=== PATIENT | male | born 1985 | race Caucasian/White ===

== ENCOUNTER → 2018-11-03 08:34 | Outpatient (CLI) | payer BC, SELFPAY ==
[2018-11-03 10:37] LABS: Absolute Lymphocyte Count 1.41 X10^3/uL (0.83-4.51); Absolute Neutrophil Count 2.8 X10^3/uL (2.0-7.7); Basophil# 0.03 X10^3/uL; Basophil% 0.6 % (0-1); Eosinophil# 0.04 X10^3/uL; Eosinophils% 0.9 % (0-5); Hematocrit 46.4 % (40-54); Lymphocyte # 1.41 X10^3/ul (4.0); Lymphocyte % 30.3 % (19-41); Mean Corp Hgb Conc 34.5 g/dL (32-36); Mean Corpuscular Hgb 30.7 pg (27.0-32.0); Mean Corpuscular Volume 88.9 fL (80-94); Mean Platelet Vol. 11.1 fl (6.2-12.0); Monocyte# 0.35 X10^3/uL; Monocyte% 7.5 % (0-10); NRBC Flagged by Analyzer 0 % (0-5); Neutrophil % 60.3 % (47-70); Platelet Count 168 K/mm3 (150-450); RBC Distribution Width CV 12.4 % (11.6-14.6); RBC Distribution Width SD 40.6 fl (35.1-43.9); Red Blood Count 5.22 M/mm3 (4.6-6.2); White Blood Count 4.7 K/mm3 (4.4-11.0)
[2018-11-03 10:53] LABS: Anion Gap 5 (5-15); BUN 13 mg/dL (7-18); BUN/Creat Ratio 10.9 RATIO (10-20); Calcium,Total 9.1 mg/dL (8.5-10.1); Chloride 105 mmol/L (98-107); Cholesterol 116 mg/dL (200); Creatinine, Serum 1.19 mg/dL (0.70-1.30); EST Glomerular Filtration Rate 75 mL/min (>60); Est Glom Filt Rate - Afr Amer 91 mL/min (>60); Glucose 83 mg/dL (74-106); High Density Lipoprotein 60 mg/dL; Potassium 4.5 mmol/L (3.5-5.1); Sodium Level 139 mmol/L (136-145); Triglycerides 28 mg/dL; Very Low Density Lipoprotein 6 mg/dL (5-40)
== END ==
PROVIDERS: Family Provider Family Medicine; PCP Family Medicine; Referring Provider Family Medicine; Visit Provider Family Medicine
DX: R42 Dizziness and giddiness (principal); I49.8 Other specified cardiac arrhythmias
CPT/HCPCS: 36415; 80048; 80061; 85025

== ENCOUNTER → 2018-11-15 06:14 | Outpatient (CLI) | payer BC, SELFPAY ==
--- NOTE | 2018-11-15 06:15 | RAD_ITS ---
HISTORY: PRE MRI ORBITS EXAMINATION/TECHNIQUE: XR Orbits MRI Gerry 2 views COMPARISON: None FINDINGS: 2 views obtained. No radiopaque foreign body is seen. The orbits are symmetrical. The paranasal sinuses are well developed and appear clear. RAD/Orbits for Foreign Body IMPRESSION: 1. Negative exam. No radiopaque foreign body identified. 2. Please proceed with MRI. at 0641 Reported and signed by: Marino Chong MD Electronically Signed: Marino Chong, at 6:40 EDT Tel , Service support ,
--- NOTE | 2018-11-15 06:31 | MRI_ITS ---
STUDY: MRI BRAIN WITH AND WITHOUT CONTRAST (ATTENTION INTERNAL AUDITORY CANALS - I.A. C.'s) REASON FOR EXAM: Male, 33 years old. Bilateral tinnitus and dizziness. Lightheadedness. TECHNIQUE: Standardized multiplanar fat and water weighted pulse sequences were obtained. 19 IV Dotarem was administered for the contrast portion of the examination. COMPARISON: None. FINDINGS: Asymmetric signal noted within the jugular vein on the right consistent with flow phenomenon. Normal bilateral temporal bones. Normal bilateral internal auditory canals. There is no demonstrated intracanalicular or cisternal vestibular schwannoma (acoustic neuroma). There is no enhancement of the bilateral VIIth or VIIIth cranial nerves. Normal bilateral cochlea, vestibules and semicircular canals. Normal size of the ventricles and extra-axial spaces for the patient's age. Normal white matter tracts of the supratentorial brain. Normal bilateral basal ganglia. Normal thalami. Normal flow voids within the major intracranial circulation suggesting patency by spin echo criteria. Normal venous enhancement. There is no enhancing intra-axial or extra-axial abnormality. There is no extra-axial fluid accumulation. Normal sella turcica, pituitary gland, infundibular stalk, optic chiasm and hypothalamus. Normal tectal plate and pineal gland. Normal midbrain, russ and medulla. Normal cerebellum. Normal basal cisterns. No demonstrated orbital abnormality, within the constraints of a routine brain study. Normal visualized paranasal sinuses. Normal calvarium and skull base. Normal visualized soft tissue structures. Normal visualized upper cervical spine. MRI/Brain W/WO Contrast IMPRESSION: Normal unenhanced and enhanced MRI of the bilateral internal auditory canals (I.A.C's). Electronically Signed: Olegario Laguerre MD at 20:17 EDT , Service support ,
== END ==
PROVIDERS: Family Provider Family Medicine; PCP Family Medicine; Referring Provider Otolaryngology; Visit Provider Otolaryngology
DX: H93.13 Tinnitus, bilateral (principal)
CPT/HCPCS: 70030; 70553; A9575

== ENCOUNTER → 2019-05-25 09:44 | Outpatient (CLI) | payer BC, SELFPAY ==
[2019-05-25 08:44] VITALS: BMI 29.5
[2019-05-25 10:35] LABS: Hematocrit 49.2 % (40-54); Hemoglobin 16.5 g/dL (13.0-16.5); Mean Corp Hgb Conc 33.5 g/dL (32-36); Mean Corpuscular Hgb 29.4 pg (27.0-32.0); Mean Corpuscular Volume 87.7 fL (80-94); Platelet Count 204 K/mm3 (150-450); RBC Distribution Width CV 13.1 % (11.6-14.6); RBC Distribution Width SD 41.2 fl (35.1-43.9); Red Blood Count 5.61 M/mm3 (4.6-6.2); White Blood Count 6.5 K/mm3 (4.4-11.0)
[2019-05-25 11:02] LABS: Anion Gap 4 (5-15); BUN 15 mg/dL (7-18); BUN/Creat Ratio 12.5 RATIO (10-20); Calcium,Total 9.3 mg/dL (8.5-10.1); Chloride 110 mmol/L (98-107); EST Glomerular Filtration Rate 74 mL/min (>60); Est Glom Filt Rate - Afr Amer 90 mL/min (>60); Glucose 86 mg/dL (74-106); Potassium 4.6 mmol/L (3.5-5.1); Sodium Level 141 mmol/L (136-145)
== END ==
PROVIDERS: PCP Family Medicine; Referring Provider Internal Medicine Cardiovascular Disease; Visit Provider Internal Medicine Cardiovascular Disease
DX: R55 Syncope and collapse (principal); R00.1 Bradycardia, unspecified; R42 Dizziness and giddiness
CPT/HCPCS: 36415; 80048; 85027

== ENCOUNTER → 2019-05-29 10:46 | Outpatient (CLI) | payer BC, SELFPAY ==
[2019-05-25 08:44] VITALS: BMI 29.5
--- NOTE | 2019-05-29 10:47 | ECHOD_ITS ---
Reason For Study: SYNCOPE/ NEAR SYNCOPE Procedure This was a 2D Doppler, Color Flow transthoracic echocardiogram. Exam performed in department. Left Ventricle Normal LV size. Left ventricular systolic function is normal. The estimated ejection fraction is 60 %. No regional wall motion abnormalities noted. Right Ventricle Normal RV size. Normal systolic function. Atria Normal left atrium. Normal right atrium. Bubble contrast study negative for right to left interatrial shunt. Mitral Valve Normal mitral valve. Tricuspid Valve Normal tricuspid valve. Aortic Valve Normal aortic valve. Trisinus/trileaflet aortic valve. Pulmonic Valve Normal pulmonic valve. Great Vessels Normal aortic root. The pulmonary artery is normal size. Normal inferior vena cava. Pericardium/Pleural No pericardial effusion. Medication 22 gauge I.V. with prn adaptor inserted into right arm. Performed a rapid injection of agitated mix of 9 cc saline and 1cc air to assess for atrial septal defect. MMode/2D Measurements & Calculations LVIDd: 5.3 cm IVSd: 0.89 cm Ao root diam: 3.4 cm LVIDs: 3.6 cm LVPWd: 0.88 cm RVDd: 3.6 cm FS: 32.2 % LAV(MOD-bp): 53.6 ml LA A4 area: 18.4 cm2 LA dimension(2D): 3.8 cm LAV(MOD-bp) Indexed: 25.1 ml/m2 LAV(MOD-sp2): 52.8 ml LAV(MOD-sp4): 45.7 ml RA A4 area: 15.0 cm2 Time Measurements MV dec time: 0.36 sec Doppler Measurements & Calculations MV E max wally: 63.4 cm/sec Lat Peak E' Wally: 17.6 cm/sec Med Peak E' Wally: 8.3 cm/sec MV A max wally: 40.1 cm/sec E/E' lat: 3.6 E/E' med: 7.6 MV E/A: 1.6 Ao V2 max: 112.0 cm/sec LV V1 max: 97.3 cm/sec PA V2 max: 98.0 cm/sec Ao max P.0 mmHg LV V1 max P.8 mmHg TR max wally: 205.2 cm/sec TR max P.9 mmHg Interpretation Summary Normal LV size. Left ventricular systolic function is normal. The estimated ejection fraction is 60 %. Bubble contrast study negative for right to left interatrial shunt. Structurally normal valves. The global longitudinal strain is normal. The global longitudinal strain = -17.7 % (normal). Ordering Physician: Wilbur Cedillo Referring Physician: BRETT KHAN Performed By: Judith Rey, EMORY, RVT
== END ==
PROVIDERS: PCP Family Medicine; Referring Provider Internal Medicine Cardiovascular Disease; Visit Provider Internal Medicine Cardiovascular Disease
DX: R55 Syncope and collapse (principal)
CPT/HCPCS: 93306

== ENCOUNTER → 2019-05-31 08:29 | Outpatient (CLI) | payer BC, SELFPAY ==
[2019-05-25 08:44] VITALS: BMI 29.5
--- NOTE | 2019-05-31 15:23 | TILTTABLE_ITS ---
- Summary Pre Test Resting HR: 76 Pre Test Resting BP: 117/69 Minimum Test HR: 60 Maximum Test HR: 120 Minimum Test BP: 113/61 Maximum Test BP: 133/89 Physician Tilt Table Report - Patient's Physicians Primary Care Physician: Varun White Indications/Diagnosis: Recurrent presyncope Procedure Comments: The patient was brought to the noninvasive lab in the postabsorptive nonsedated state. The initial blood pressure was 117/69 mmHg with a heart rate of 76 bpm and sinus rhythm. The patient was then placed in th e 70 degree head upright tilt position. Continuous EKG monitoring was performed as well as blood pressures and heart rates every 2 minutes. The maximum heart rate was noted to be 89 bpm with a maximum blood pressure 130/89 mmHg. Patient exhibited no symptoms. The patient was then placed back supine and administered 6.4 mg of sublingual nitroglycerin. Patient was then placed in the 70 degrees upright tilt table position with blood pressures and heart rate checked every 2 minutes. Patient complained of some lightheadedness and clamminess but no syncope. Patient did not exhibit any significant bradycardia dysrhythmias or hypotension. Summary: Negative tilt table test for symptoms or hypotension.
[2019-05-31 15:37] VITALS: BP 113/61; BP 117/69; BP 133/89
== END ==
PROVIDERS: PCP Family Medicine; Referring Provider Internal Medicine Cardiovascular Disease; Visit Provider Internal Medicine Cardiovascular Disease
DX: R55 Syncope and collapse (principal)
CPT/HCPCS: 93660; J7040; A4216

== ENCOUNTER → 2020-02-19 16:08 | Outpatient (CLI) | payer BC, SELFPAY ==
[2019-06-27 09:10] VITALS: BMI 29.4
[2020-02-19 18:17] LABS: Absolute Lymphocyte Count 1.85 X10^3/uL (0.83-4.51); Absolute Neutrophil Count 5.7 X10^3/uL (2.0-7.7); Basophil# 0.04 X10^3/uL; Basophil% 0.5 % (0-1); Eosinophil# 0.06 X10^3/uL; Eosinophils% 0.7 % (0-5); Hematocrit 46.4 % (40-54); Hemoglobin 15.8 g/dL (13.0-16.5); Lymphocyte # 1.85 X10^3/ul (4.0); Lymphocyte % 22.8 % (19-41); Mean Corp Hgb Conc 34.1 g/dL (32-36); Mean Corpuscular Hgb 29.9 pg (27.0-32.0); Mean Corpuscular Volume 87.7 fL (80-94); Mean Platelet Vol. 11.6 fl (6.2-12.0); Monocyte# 0.41 X10^3/uL; NRBC Flagged by Analyzer 0 % (0-5); Neutrophil # 5.73 X10^3/uL (2.7-7.7); Neutrophil % 70.6 % (47-70); Platelet Count 203 K/mm3 (150-450); RBC Distribution Width CV 12.4 % (11.6-14.6); RBC Distribution Width SD 39.8 fl (35.1-43.9); Red Blood Count 5.29 M/mm3 (4.6-6.2); White Blood Count 8.1 K/mm3 (4.4-11.0)
[2020-02-19 18:53] LABS: Thyroid Stim Hormone (TSH) 0.87 uIU/mL (0.358-3.74)
[2020-02-20 11:14] LABS: ALB/GLOB Ratio 1.7 RATIO (0.9-2.4); AST(SGOT) 29 U/L (15-37); Alanine Aminotransfer ALT/SGPT 65 U/L (16-61); Albumin, Serum 4.7 g/dL (3.2-5.0); Alkaline Phosphatase 64 U/L (45-117); Anion Gap 5 (5-15); BUN 15 mg/dL (7-18); Calcium,Total 9.6 mg/dL (8.5-10.1); Chloride 106 mmol/L (98-107); Creatinine, Serum 1.25 mg/dL (0.70-1.30); EST Glomerular Filtration Rate 71 mL/min (>60); Est Glom Filt Rate - Afr Amer 86 mL/min (>60); Globulin 2.8 g/dL (2.2-4.2); Glucose 106 mg/dL (74-106); Protein, Total 7.5 g/dL (6.4-8.2); Sodium Level 141 mmol/L (136-145)
== END ==
PROVIDERS: PCP Family Medicine; Visit Provider Family Medicine
DX: R42 Dizziness and giddiness (principal)
CPT/HCPCS: 36415; 80053; 84443; 85025

== ENCOUNTER 2020-03-27 17:28 | Outpatient (RCR) | payer BC, SELFPAY ==
[2019-06-27 09:10] VITALS: BMI 29.4
--- NOTE | 2020-03-27 18:24 | HP.PTEVAL_ITS ---
Patient's Visit Information BENEDICTO NGUYỄN is a 35 year old M referred to Physical Therapy by Dr. Varun White MD with a diagnosis of dizzyness. Date of Evaluation: 03/27/20 Physical Therapist: Hal Montes, LEONORT, OCS, CSCS - Visit Plan Frequency: 1x/Week Duration: 4-6 Weeks Plan: weekly as helpful x 4 weeks for. progression of adaptation exercises(VOR horizontal 60 sec 8x/day given today.(gave 4/10 dizzy for 5-10 seconds.) - Subjective Dizzyness for 2.5 yrs. Seen emergency planner adn had MRI and can't find anything wrong. ENT Omer who did a couple test and nothing he can do for him. 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 Days later started feeling unsteady rocking, never had any spinning. It is daily fairly constant but some times worse than others. Walking through supermarkets and large groups of people make it worse. Feels better upon leaving supermarket. Does not describe ENG. Had a week last Fer[place] where it was terrible nauseous and rocking. That got better. Not as bad or debilitating btu still present. Now activities are pretty normal but less inclined to go out , Does a lot of acoustic ceilings and stilt walking. Feels less stable on stilts. Worse when on stilts but functional. Sleep is OK. 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 Often worse after work. Feels good down on floor, worse when does ceiling. Hobbies include working out but doesn't do that as he doesn't feel like it . Hard to focus at times with reading. - Objective Walks normal and trasnfers normal and I. Steps reciprocal without rail. VOR walking is slightly slower and less steady but safe. cervical aROM WFL adn without pain or hesitation. - B hallpike haydee test. Oculomotor is normal: no nystagmus with gaze or head shake. - ocular tilt. - skew eye deviation. normal pursuit. Normal Saccades. - head thrust. VOR horiz stand and sit is 4/10 dizzyness after 30 seconds for about 5-10 seconds. VOR vertical is not a problem. MSQ psoitions are no problem for patient. - Goals Goal 1:: Pt walk at [employer] and in large groups without symptoms Goal Time Frame: 2-4 Weeks Goal 2:: Wrok without increased symptoms. Goal Time Frame: 2-4 Weeks Goal 3:: Pt feel 90% back to normal Goal Time Frame: 4-6 Weeks Goal 4:: DHI<20 Goal Time Frame: 4-6 Weeks - Rehabilitation Potential Physical Therapy Diagnosis: dizzyness, presents like unilateral vestibular hypofunction but terminal carman nature is confounding. Rehabilitation Potential: Fair - Anticipated Interventions Patient/Client Instruction: Educate patient on: Condition, Plan of Care For the Purpose of:: To increase tolerance to activity/condition/position Comment: aaptation as helpful/vestibular For the Purpose of:: To increase tolerance to activity/condition/position Thank you for the opportunity to evaluate your patient. For Medicare and Medicare HMO plans, please review the plan of care and approve it. It will need to be FAXED BACK to us at [phone] for Medicare purposes. For Medicare only, by signing this I certify the plan of care. Please let me know if there are questions or concerns regarding this plan of care. Physician Signat ure: Date:
--- NOTE | 2020-07-02 10:13 | HP.PT.NRP ---
BENEDICTO NGUYỄN was seen in my office for initial evaluation on 03/27/20. The following Plan of Care was established for this patient: Initial Frequency: 1x/Week Initial Duration: 4-6 Weeks Patient/Client Instruction: Educate patient on: Condition, Plan of Care For the Purpose of:: To increase tolerance to activity/condition/position For the Purpose of:: To increase tolerance to activity/condition/position This patient was last seen in our office 03/27/20. Pertinent comments regarding their Physical therapy will appear below: Pt seen for evaluation and cancelled the next two visits. He was treated with adaptation exercises. At this point, it has been over two months and I will discontinue due to nonattendance. At this point I will be discontinuing this patient from physical therapy. I would be happy to see this patient again in the future if found appropriate by the physician. Thank you! Hal Montes, DPT, OCS, CSCS
== END 2020-03-27 19:00 | disposition home or self-care (01) ==
LOC: PT 17:28
PROVIDERS: PCP Family Medicine; Referring Provider Family Medicine; Visit Provider Family Medicine
DX: R42 Dizziness and giddiness (principal)
CPT/HCPCS: 97110; 97162

== ENCOUNTER 2023-03-14 11:31 | Emergency (ER) | payer BC, SELFPAY ==
[2023-03-14 11:32] VITALS: BP 126/86; PULSE 88; RESP 14; TEMP 36.1; O2SAT 100; BMI 29.4
--- NOTE | 2023-03-14 11:56 | EDS_ITS ---
HPI History of Present Illness Chief Complaint: General Illness [facility] Medical History Bradycardia Dizziness Headache Migraines Near syncope Home Medications midodrine 5 mg tablet 5 mg PO TID #90 tabs 05/25/19 [Rx Last Taken Unknown] ondansetron 4 mg disintegrating tablet 4 mg PO Q8H PRN PRN Nausea #10 tabs 03/14/23 [Rx Last Taken Unknown] Allergy/AdvReac Type Severity Reaction Status Date / Time No Known Allergies Allergy Verified 03/14/23 11:34 Family History Mother Mitral valve prolapse Social History (Updated 06/27/19 @ 10:[address] Wilbur Cedillo MD) Smoking Status: Never smoker alcohol intake: never substance use type: does not use EXAM Physical Exam Const Vital Signs: 03/14/23 11:32 03/14/23 15:11 Temperature 97.0 F L Temperature Source Temporal Pulse Rate 88 Respiratory Rate 14 Respiratory Effort Normal Non-Labored Respiratory Pattern Normal Blood Pressure 126/86 H Blood Pressure Mean 99 Pulse Ox 100 Oxygen Delivery Method Room Air MDM MDM MDM Narrative Medical decision making narrative: HISTORY OF PRESENT ILLNESS: 38-year-old male presents with fever, vomiting, congestion, diarrhea and headache for 3 days. Denies shortness of breath. M the patient denies recent surgery in the last 4 weeks or immobilization in the last 3 days, denies previous diagnosis of DVT or PE, hemoptysis, unilateral leg swelling or malignancy with treatment the last 6 months or palliative. No estrogen use noted. Patient denies sudden onset or thunderclap headache, denies maximal intensity within 1 minute, vomiting, neck pain, stiffness, changes in vision, fever, history malignancy, syncope, or seizures associated with headache. Patient denies sudden onset or thunderclap headache, denies maximal intensity within 1 minute, vomiting, neck pain, stiffness, changes in vision, fever, history malignancy, syncope, or seizures associated with headache. REVIEW OF SYSTEMS: Pertinent positives: Fever, headache, nausea, vomiting, diarrhea Pertinent negatives: Shortness of breath, chest pain PHYSICAL EXAM: Nursing triage notes reviewed, Vital signs reviewed Constitutional: please see mdm HENT: MMM Eyes: Pupils equal round and reactive to light, Extraocular muscles intact Neck: No stridor, no JVD, full neck ROM Lungs: Clear to auscultation, No wheezing or rales. No increased work of breathing, no conversational dyspnea, no accessory muscle use, no nasal flaring. No respiratory distress noted Heart: Regular rate and rhythm, No murmurs, No rubs and No gallops, 2+ distal pulses (radial, femoral, posterior tibial) in all extremities Abdomen: Soft, there is no tenderness, rigidity, rebound or guarding, no obvious peritoneal signs, no palpable pulsatile abdominal masses, no auscultated abdominal bruit : No CVAT Extremities: No edema Neuro: Alert and oriented x3, neuro exam at baseline, cranial nerves II through XII are intact. No pain with extraocular muscle movement. There is negative test of skew. 5 of 5 strength in upper and lower extremities in flexion extension. Intact sensation to light touch in upper and lower extremity dermatomes. No truncal or extremity ataxia. No dysdiadochokinesia. Normal gait. 2+ reflexes in upper and lower extremities. No meningeal signs. Negative Babinski. NIH of 0. Skin: No rash or lesions noted MEDICAL DECISION MAKING: Chief Complaint: As above External records reviewed: Imaging studies reviewed: MRI of the brain from 2019 shows no acute process Factors affecting care: None MDM Narrative: Patient was initially hemodynamically stable, afebrile, nontoxic-appearing. Lungs are clear I considered the following differential diagnosis: Flu, RSV, COVID, ACS, PE ALL IMAGES (IF OBTAINED) HAVE BEEN PERSONALLY REVIEWED AND INTERPRETED BY MYSELF. High-sensitivity troponin is negative, no evidence of myocardial ischemia EKG shows normal sinus rhythm, normal axis, no intervals, no STEMI CBC without leukocytosis, severe anemia, no thrombocytopenia. BMP with hyponatremia, hypokalemia, no anion gap distress endorgan hypoperfusion, LFTs show no evidence of hepatobiliary pathology. Lipase is wnl indicating no pancreatic inflammation. I have personally reviewed the patient's chest x-ray. Chest x-ray is unremarkable for pulmonary edema, pneumothorax, pneumonia or focal cardiopulmonary abnormality. I considered obtaining advanced imaging of the chest including a CTA rule out PE however the patient low risk Wells score and as such I have less risk for PE. Patient headache was not concerning for secondary infection did not appear to be life-threatening, no headache red flags such as syncope or seizure. Lower suspicion for acute CVA or subarachnoid hemorrhage with a nonfocal neuroexam and NIH of 0. With a nonfocal neuroexam and NIH of 0. The synthesis of the patient's history, physical exam, labs suggest no acute life-limiting etiology. Patient likely some from a viral URI which resulted in nausea vomiting diarrhea that resulted in mild electrolyte disturbances and mild dehydration. He was given Zofran for home-going and encouraged to continue fluid resuscitation and to return if symptoms change or worsen. The patient and/or family, caregivers express understanding. The patient and/or family, caregivers agrees with the plan. Shared decision making: I will have a discussion with the patient and or visitors regarding risk/benefits of further testing or admission. They will be made aware of of the risk/benefits inherent in this decision they will be given the opportunity to voice understanding. Total critical care time today provided was at least 0 minutes. This excludes separately billable procedures. Critical care time (if documented) is secondary to the patient having high probability of clinically significant/life threatening deterioration in the patient's condition which required my urgent intervention. Impression: 1. Viral illness 2. Dehydration 3. Hyponatremia 4. Hypokalemia Dispo: Discharge home Lab Data Attestation: I reviewed the patient's lab results. Labs: Laboratory Results - last 24 hr 03/14/23 12:35 WBC 6.8 RBC 5.12 Hgb 15.2 Hct 44.9 MCV 87.7 MCH 29.7 MCHC 33.9 RDW Std Deviation 38.9 RDW Coeff of Bean 12.1 Plt Count 155 MPV 9.9 Immature Gran % (Auto) 0.100 Neut % (Auto) 68.8 Lymph % (Auto) 19.0 Archer % (Auto) 11.4 H Eos % (Auto) 0.1 Baso % (Auto) 0.6 Absolute Neuts (auto) 4.7 Absolute Lymphs (auto) 1.29 Nucleated RBC % 0 Sodium 134 L Potassium 3.3 L Chloride 102 Carbon Dioxide 27.0 Anion Gap 5 BUN 15 Creatinine 1.30 Estim Creat Clear Calc 81.11 Est GFR (MDRD) Af Amer 80 Est GFR (MDRD) Non-Af 66 BUN/Creatinine Ratio 11.5 Glucose 86 Calcium 9.3 Total Bilirubin 0.90 AST 23 ALT 35 Alkaline Phosphatase 49 Troponin I High Sens 6 Total Protein 7.9 Albumin 3.6 Globulin 4.3 H Albumin/Globulin Ratio 0.8 L Lipase 23 Radiography Chest X-Ray - ED: Read by ED Physician Diagnostic Testing: Clinical Impression(s) from Imaging Studies Chest X-Ray 03/14/23 13:00 IMPRESSION: Normal x-ray examination of the chest. Electronically Signed: Jung Archer MD at 13:23 EST Reading Location ID and State: [facility] / [place] , Service support , Discharge Plan Triage Chief Complaint: General Illness ED Provider: Pro Curry Dx/Rx/DC Orders Instructions: Dehydration, ED Diarrhea, Unknown Cause Prescriptions: New ondansetron 4 mg tablet,disintegrating 4 mg PO Q8H PRN PRN (Reason: Nausea) Qty: 10 0RF No Action midodrine 5 mg tablet 5 mg PO TID Qty: 90 6RF Rx Instructions: do not give last dose of day after 6PM or within 4 hrs of bedtime Primary Care Provider: Varun White Referrals: Varun White MD [Primary Care Provider] - Activity Restrictions/Additional Instructions: Thank you for trusting us with your care today! You likely have a nonspecific stomach virus. Please take Zofran as needed for nausea. Please return for symptoms change or worsen. Please take Tylenol (2 pills, 650 mg), ibuprofen (2 pills, 400 mg) every 6 hours as needed for pain and fever control. Please drink plenty of fluids. I recommend body armor, Pedialyte, Gatorade or other electrolyte containing oral rehydration solution. Please return to the emergency department if your symptoms change or worsen. Please follow with your primary care physician for further outpatient evaluation and management. Disposition Disposition: Home, Self Care Discharge Date/Time: 03/14/23 15:46
[2023-03-14] MEDS: Ondansetron 4 MG/2 ML Vial IV (12:37)
[2023-03-14] MEDS: Ketorolac 15 MG/ML Vial IV (12:37)
[2023-03-14] MEDS: 0.9% Normal Saline (500mL Bag) 500 ML 999 ML IV (12:38)
[2023-03-14 12:41] LABS: Absolute Lymphocyte Count 1.29 X10^3/uL (0.83-4.51); Absolute Neutrophil Count 4.7 X10^3/uL (2.0-7.7); Basophil# 0.04 X10^3/uL; Basophil% 0.6 % (0-1); Eosinophil# 0.01 X10^3/uL; Eosinophils% 0.1 % (0-5); Hematocrit 44.9 % (40-54); Hemoglobin 15.2 g/dL (13.0-16.5); Lymphocyte # 1.29 X10^3/ul (0.83-4.51); Mean Corp Hgb Conc 33.9 g/dL (32-36); Mean Corpuscular Hgb 29.7 pg (27.0-32.0); Mean Corpuscular Volume 87.7 fL (80-94); Mean Platelet Vol. 9.9 fl (6.2-12.0); Monocyte# 0.77 X10^3/uL; Monocyte% 11.4 % (0-10); NRBC Flagged by Analyzer 0 % (0-5); Neutrophil # 4.66 X10^3/uL (2.7-7.7); Neutrophil % 68.8 % (47-70); Platelet Count 155 K/mm3 (150-450); RBC Distribution Width CV 12.1 % (11.6-14.6); RBC Distribution Width SD 38.9 fl (35.1-43.9); Red Blood Count 5.12 M/mm3 (4.6-6.2); White Blood Count 6.8 K/mm3 (4.4-11.0)
--- NOTE | 2023-03-14 13:00 | RAD_ITS ---
STUDY: X-RAY CHEST REASON FOR EXAM: Male, 38 years old. Cough. TECHNIQUE: Single frontal view of the chest. COMPARISON: None. FINDINGS: The lungs are clear and expanded. There is no demonstrated pleural abnormality. Normal size heart. Normal mediastinum and kelvin. Normal visualized pulmonary arteries. Normal visualized aortic arch and descending thoracic aorta. Normal visualized thoracic spine. Normal visualized ribs, clavicles, and shoulders. No abnormality of the visualized soft tissue structures of the upper abdomen. RAD/Chest 1 View (Portable) IMPRESSION: Normal x-ray examination of the chest. Electronically Signed: Jung Archer MD at 13:23 EST ,
[2023-03-14 13:02] LABS: ALB/GLOB Ratio 0.8 RATIO (0.9-2.4); AST(SGOT) 23 U/L (15-37); Alanine Aminotransfer ALT/SGPT 35 U/L (16-61); Albumin, Serum 3.6 g/dL (3.2-5.0); Alkaline Phosphatase 49 U/L (45-117); Anion Gap 5 (5-15); BUN 15 mg/dL (7-18); BUN/Creat Ratio 11.5 RATIO (10-20); Calcium,Total 9.3 mg/dL (8.5-10.1); Chloride 102 mmol/L (98-107); EST Glomerular Filtration Rate 66 mL/min (>60); Est Glom Filt Rate - Afr Amer 80 mL/min (>60); Estimated Creatinine Clearance 81.11 ml/min; Globulin 4.3 g/dL (2.2-4.2); Glucose 86 mg/dL (74-106); Lipase 23 U/L (13-75); Potassium 3.3 mmol/L (3.5-5.1); Protein, Total 7.9 g/dL (6.4-8.2); Sodium Level 134 mmol/L (136-145); Troponin-I HS 6 pg/mL (3.0-78.0)
--- NOTE | 2023-03-14 13:08 | ED.RN ---
NO OLD EKG
== END 2023-03-14 15:46 | disposition home or self-care (01) ==
PROVIDERS: Emergency Provider Emergency Medicine; PCP Family Medicine; Visit Provider Emergency Medicine
DX: B34.9 Viral infection, unspecified (principal); E86.0 Dehydration; E87.1 Hypo-osmolality and hyponatremia; E87.6 Hypokalemia
CPT/HCPCS: 71045; 80053; 83690; 84484; 85025; 87428; 93005; 96361; 96374; 96375; 99283; J2405